=== PATIENT | male | born 2000 | race Two or more races ===

== ENCOUNTER 2021-02-23 15:22 | Emergency (ER) | payer OTHER ==
[~2021-02-23] VITALS: Ht 167.6 cm; Wt 86.2 kg
[2021-02-23 15:22] VITALS: BP 138/58
[2021-02-23] MEDS ORDERED: MELA5CAP2 PO (15:58)
[2021-02-23] MEDS ORDERED: CLAR10CA3 PO (15:58)
== END 2021-02-23 18:12 | disposition home or self-care (01) ==
LOC: M ED 15:22
DX: U07.1 COVID-19 (principal); J30.89 Other allergic rhinitis

== ENCOUNTER 2021-03-09 12:09 | Inpatient (IN) | payer OTHER ==
[~2021-03-09] VITALS: Ht 167.6 cm; Wt 83.2 kg
[~2021-03-09 12:09] MED LIST: CLAR10CA3 PO; MELA5CAP2 PO
[2021-03-09 12:44] LABS: HEMOGLOBIN 15.1 g/dl (13.5-17.5); MEAN CORPUSCULAR HEMOGLOBIN 32.4 pg (27.0-33.0); MEAN CORPUSCULAR HGB CONC 33.6 g/dl (32.0-36.5); MEAN CORPUSCULAR VOLUME 96.6 fl (80.0-96.0); PLATELET COUNT, AUTOMATED 285 10^3/uL (150-450); RED BLOOD COUNT 4.66 10^6/uL (4.30-6.10); WHITE BLOOD COUNT 8.8 10^3/uL (4.0-10.0)
[2021-03-09 13:17] LABS: AMPHETAMINES LEVEL URINE NEGATIVE (NEGATIVE); BARBITURATES URINE NEGATIVE (NEGATIVE); BENZODIAZEPINES URINE NEGATIVE (NEGATIVE); CANNABINOIDS URINE POSITIVE (NEGATIVE); COCAINE METABOLITE URINE NEGATIVE (NEGATIVE); METHADONE URINE NEGATIVE (NEGATIVE); OPIATES URINE NEGATIVE (NEGATIVE); PHENCYCLIDINE URINE NEGATIVE (NEGATIVE)
[2021-03-09 13:26] LABS: ACETAMINOPHEN LEVEL < 2.0 UG/ML (10.0-30.0); ALBUMIN 4.1 GM/DL (3.2-5.2); ALT/SGPT 32 U/L (12-78); BILIRUBIN,DIRECT 0.2 MG/DL (0.0-0.2); BILIRUBIN,TOTAL 0.6 MG/DL (0.2-1.0); BLOOD UREA NITROGEN 10 MG/DL (7-18); CALCIUM LEVEL 9.5 MG/DL (8.5-10.1); CARBON DIOXIDE LEVEL 31 MEQ/L (21-32); CHLORIDE LEVEL 109 MEQ/L (98-107); CREATININE FOR GFR 1.09 MG/DL (0.70-1.30); ETHYL ALCOHOL (ETHANOL) < 0.003 % (0.000-0.010); GLUCOSE, FASTING 93 MG/DL (70-100); POTASSIUM SERUM 3.9 MEQ/L (3.5-5.1); SALICYLATE LEVEL < 1.7 MG/DL (5.0-30.0); SODIUM LEVEL 143 MEQ/L (136-145); TOTAL PROTEIN 7.4 GM/DL (6.4-8.2)
[2021-03-09 16:11] LABS: RSV AMPLIFICATION NEGATIVE (NEGATIVE)
[2021-03-09] MEDS ORDERED: traZODone 50 MG TAB PO PRN (21:55)
[2021-03-09] MEDS ORDERED: MAALOX 30 ML SUSP *UDC PO PRN (21:55)
[2021-03-09] MEDS ORDERED: ACETAMINOPHEN TAB 650MG DOSE (2X325MG) PO PRN (21:55)
[2021-03-09] MEDS ORDERED: MOM 30ML SUSPENSION UDC PO PRN (21:55)
[2021-03-10] MEDS ORDERED: MELA1TAB9 PO (06:25)
[2021-03-10] MEDS ORDERED: CLAR10TA7 PO (06:25)
[2021-03-10] MEDS ORDERED: HOME MED LIST COMPLETE! XX SCH (06:30)
[2021-03-10] MEDS: NICOTINE 14 MG/24 HR TRANSDERMAL TD SCH (09:00)
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
[2021-03-10] MEDS: SERTRALINE HCL 25 MG TABLET PO SCH (10:45)
--- NOTE | 2021-03-10 15:08 | MHIPNPDOC ---
[facility] Progress Note Progress Note DATE OF SERVICE: 03/10/21 After discussing the patient's case with ED staff on 03/09/21, this data analyst report writer decided to admit the patient to [facility] for safety concerns because he couldn't contract for safety concerns and because he recently overdosed on melatonin tablets. Vital Signs Vital Signs Date Time Temp Pulse Resp B/P (MAP) Pulse Ox O2 Delivery O2 Flow Rate FiO2 03/10/21 09:13 Room Air 03/09/21 12:38 17 03/09/21 12:13 98.6 67 105/58 (74) 100 Laboratory Data 24H Labs Laboratory Tests 2 03/09/21 15:11: Coronavirus (COVID-19)(PCR) POSITIVEA, Influenza Type A (RT-PCR) NEGATIVE, Influenza Type B (RT-PCR) NEGATIVE, Respiratory Syncytial Virus (PCR) NEGATIVE Current Medications Current Medications Medications (Trade) Dose Ordered Sig/Erica Route PRN Reason Start Time Stop Time Status Last Admin Dose Admin Acetaminophen (Tylenol Tab) 650 mg Q6HP PRN PO HEADACHE or MILD DISCOMFORT 03/09/21 21:55 Al Hydrox/Mg Hydrox/Simethicone (Mylanta) 30 ml Q4HP PRN PO HEARTBURN/INDIGESTION 03/09/21 21:55 Home Med (Home Med List Complete!) ASDIRECTED XX 03/10/21 06:30 03/10/21 06:28 DC Magnesium Hydroxide (Milk Of Magnesia) 30 ml DAILYPRN PRN PO CONSTIPATION 03/09/21 21:55 Nicotine (Nicoderm Cq 14mg) 1 patch DAILY TD 03/10/21 09:00 Sertraline HCl (Zoloft) 25 mg QAM PO 03/10/21 10:30 03/10/21 10:45 Trazodone HCl (Desyrel) 50 mg QHSP PRN PO INSOMNIA 03/09/21 21:55 Allergies Coded Allergies: mold (Verified Allergy, Unknown, allergy testing, 02/23/21) KORY GUZMAN MD Mar 10, 2021 15:08
--- NOTE | 2021-03-10 15:45 | HPEPDOC ---
General Date of Admission Mar 09, 2021 at 21:05 Date of Service: Mar 10, 2021 Attending Physician: JEROME RIVERS MD Chief Complaint The patient is a 20-year-old male admitted with a reason for visit of Unspecified Depressive Disorder. 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 He reports depressed mood and intermittent feelings of wanting to end it all and hopelessness. He otherwise denies drinking since 1 month ago after he had been drinking a lot for a couple of months, does not smoke but vapes sometimes and used MJ in high school. ED evaluation was unremarkable with tox screen that was positive for cannabinoids with an otherwise normal CBC and BMP. Internal medicine is now consulted for medical H&P. Home Medications Scheduled Loratadine (Claritin) 10 Mg Tablet, 10 MG PO QHS for ALLERGY SYMPTOMS, (R eported) Melatonin (Melatonin) 5 Mg Tablet, 5 MG PO QHS for TROUBLE SLEEPING, (Reported) Allergies Coded Allergies: mold (Verified Allergy, Unknown, allergy testing, 02/23/21) Past Medical History Medical History None Surgical History None Family History Mother depression, cancer runs in the family, HTN, alcoholism on father's side Social History * Smoker: other (vapes sometimes) Alcohol: occationally (was drinking a lot a few months ago, no drink in over 1 month) Drugs: denies (however was positive for cannabinoids) Recent Travel/Sick Contacts: Denies: Recent travel, Recent sick contacts Psychosocial History: No pertinent psych hx A-FIB/CHADSVASC A-FIB History Current/History of A-Fib/PAF?: No Current PO Anticoag Therapy: No Age/Risk Factor Scoring CHADSVASC: CHADSVASC Response (Comments) Value Age Risk Factor Age < 65 years old 0 Gender Risk Factor Male 0 Hx of CHF No 0 Hx of HTN No 0 Hx of Stroke/TIA/or VTE No 0 Hx of Diabetes No 0 Hx of Vascular Disease No 0 Total 0 Treatment Treatment ordered: NONE Reason Anticoagulant not given: Not indicated/[id number] Review of Systems Constitutional: Denies: Chills, Fever, Night Sweats Eyes: Denies: Pain, Vision change ENT: Denies: Head Aches, Ear Pain, Dysphagia Skin: Denies: Rash, Lesions, Breakdown Pulmonary: Denies: Dyspnea, Cough Cardiovascular: Denies: Chest Pain, Palpitations, Orthopnea, Paroxysmal Noc. Dyspnea, Lt Headedness Gastrointestinal: Denies: Nausea, Vomiting, Abdominal Pain, Diarrhea Genitourinary: Denies: Dysuria, Frequency, Incontinence, Retention Hematologic: Denies: Bruising, Bleeding Excessively Endocrine: Denies: Polydipsia, Polyphagia, Polyuria, Heat Intolerance, Cold Intolerance, Other Endocrine Sx Musculoskeletal: Denies: Neck Pain, Back Pain, Joint Pain, Muscle Pain, Spasms Neurological: Denies: Weakness, Numbness, Change in speech, Confusion Psych: Reports: Depression, Thoughts of Self Harm (sometimes has thoughts of end his life); Denies: Thoughts of Harming Other Physical Examination General Exam: Positive: Alert, No Acute Distress Eye Exam: Positive: PERRLA, Conjunctiva & lids normal, EOMI; Negative: Sclera icteric ENT Exam: Positive: Atraumatic, Mucous membr. moist/pink, Pharynx Normal Neck Exam: Positive: Supple; Negative: JVD, thyromegaly Chest Exam: Positive: Clear to auscultation, Normal air movement Heart Exam: Positive: Rate Normal, Regular Rhythm, Normal S1, Normal S2; Negative: Murmurs, Rubs Abdomen Exam: Positive: Normal bowel sounds, Soft; Negative: Tenderness, Hepatospenomegaly Extremity Exam: Positive: Normal pulses; Negative: Clubbing, Cyanosis, Edema Skin Exam: Positive: Nl turgor and temperature; Negative: Breakdown, Lesion Neuro Exam: Positive: Normal Gait, Normal Speech, Cranial Nerves 3-12 NL, Reflexes 2+ Psych Exam: Positive: Oriented x 3 Vital Signs Vital Signs Date Time Temp Pulse Resp B/P (MAP) Pulse Ox O2 Delivery O2 Flow Rate FiO2 03/10/21 09:13 Room Air 03/09/21 12:38 17 03/09/21 12:13 98.6 67 105/58 (74) 100 Laboratory Data Labs 24H Laboratory Tests 2 03/09/21 12:30: Nucleated Red Blood Cells % (auto) 0.0, Anion Gap 3L, Calcium Level 9.5, Total Bilirubin 0.6, Direct Bilirubin 0.2, Aspartate Amino Transf (AST/SGOT) 18, Alanine Aminotransferase (ALT/SGPT) 32, Alkaline Phosphatase 71, Total Protein 7.4, Albumin 4.1, Albumin/Globulin Ratio 1.2, Thyroid Stimulating Hormone (TSH) 1.340, Salicylates Level < 1.7L, Urine Opiates Screen NEGATIVE, Urine Methadone Screen NEGATIVE, Acetaminophen Level < 2.0L, Urine Barbiturates Screen NEGATIVE, Urine Phencyclidine Screen NEGATIVE, Urine Amphetamines Screen NEGATIVE, Urine Benzodiazepines Screen NEGATIVE, Urine Cocaine Metabolite Screen NEGATIVE, Urine Cannabinoids Screen POSITIVEH, Ethyl Alcohol Level < 0.003 03/09/21 15:11: Coronavirus (COVID-19)(PCR) POSITIVEA, Influenza Type A (RT-PCR) NEGATIVE, Influenza Type B (RT-PCR) NEGATIVE, Respiratory Syncytial Virus (PCR) NEGATIVE CBC/BMP Laboratory Tests 03/09/21 12:30 Assessment/Plan 20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 Suicide attempt with confirmed ideation and depressed mood: -Plan for primary psych team Covid-19 infection: -Feels otherwise well to continue self isolation and masking DVT ppx: -ambulatory Internal medicine will sign off at this time. Plan / VTE VTE Prophylaxis Ordered?: No VTE Exclusion Mechanical Proph: Low Risk for VTE VTE Exclusion Pharmacological: At Low Risk for VTE JEROME RIVERS MD Mar 10, 2021 12:37
[2021-03-10 17:23] VITALS: BP 119/58
[2021-03-11 06:41] VITALS: BP 118/56
[2021-03-11] MEDS: NICOTINE 14 MG/24 HR TRANSDERMAL TD SCH (08:12)
[2021-03-11] MEDS: SERTRALINE HCL 25 MG TABLET PO SCH (09:10)
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
[2021-03-11 16:01] VITALS: BP 126/88
[2021-03-11] MEDS: QUEtiapine FUMARATE 50MG TAB PO SCH (21:14)
[2021-03-12 06:38] VITALS: BP 107/58
[2021-03-12 07:47] LABS: CHOLESTEROL RISK RATIO 4.288 (<5)
[2021-03-12] MEDS: NICOTINE 14 MG/24 HR TRANSDERMAL TD SCH (09:00)
[2021-03-12] MEDS: SERTRALINE HCL 50 MG TAB PO SCH (09:36)
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
[2021-03-12 18:53] VITALS: BP 125/56
[2021-03-12] MEDS: QUEtiapine FUMARATE 50MG TAB PO SCH (21:17)
[2021-03-13 06:35] VITALS: BP 92/57
[2021-03-13] MEDS: NICOTINE 14 MG/24 HR TRANSDERMAL TD SCH (08:39)
[2021-03-13] MEDS: SERTRALINE HCL 50 MG TAB PO SCH (08:39)
[2021-03-13] MEDS ORDERED: QUET50TA4 PO (09:28)
[2021-03-13] MEDS ORDERED: SERT50TA29 PO (09:28)
[2021-03-13] MEDS ORDERED: NICO14PA TD (09:28)
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
== END 2021-03-13 12:05 | disposition home or self-care (01) | DRG 885 ==
LOC: M ED 12:09 → M PSY 21:05 → M ED INP 21:52 → UNDOADMIN 21:52 → M ED INP 23:14 → M PSY 23:14
PROVIDERS: ADMIT Psychiatry & Neurology Psychiatry; ATTEND Student in an Organized Health Care Education/Training Program
DX: F32.1 Major depressive disorder, single episode, moderate (principal); U07.1 COVID-19; R45.851 Suicidal ideations; F17.290 Nicotine dependence, other tobacco product, uncomplicated; F60.89 Other specific personality disorders; Z63.4 Disappearance and death of family member; Z79.899 Other long term (current) drug therapy; Z91.09 Other allergy status, other than to drugs and biological substances; F60.0 Paranoid personality disorder